=== PATIENT | male | born 1995 | race African-American/Black ===

== ENCOUNTER 2019-10-22 23:47 | Emergency (ER) | payer OTHER ==
[~2019-10-22] VITALS: Ht 170.2 cm; Wt 68.0 kg
[2019-10-22 23:55] VITALS: Ht 170.2 cm; Wt 68.0 kg
[2019-10-23 01:12] VITALS: BP 115/83
== END 2019-10-23 01:12 | disposition home or self-care (01) ==
LOC: ED 23:47
DX: S20.211A Contusion of right front wall of thorax, initial encounter (principal); V49.9XXA Car occupant (driver) (passenger) injured in unspecified traffic accident, initial encounter; Y93.89 Activity, other specified; Y92.89 Other specified places as the place of occurrence of the external cause; Y99.8 Other external cause status